=== PATIENT | female | born 1940 | race Caucasian/White ===

== ENCOUNTER 2016-12-13 09:43 | Inpatient (IN) | payer MEDICARE ==
[~2016-12-13] VITALS: Ht 167.6 cm; Wt 110.6 kg
[~2016-12-13 09:43] MED LIST: COU5 PO; HCTZ; ZES20T PO; [UNRECOGNIZED DRUG - CODE] PO
[2016-12-13] MEDS ORDERED: Polyethylene Glycol (PEG) 17 Gm Powder PO PRN (10:20)
[2016-12-13] MEDS ORDERED: Alum-Mag Hydrox-Simeth 30 mL Suspension PO PRN (10:20)
[2016-12-13 10:26] VITALS: PULSE 122
[2016-12-13 11:10] LABS: INR 1.27 ratio
[2016-12-13 11:18] LABS: Magnesium 1.9 mg/dL (1.6-2.6)
[2016-12-13] MEDS ORDERED: LOSA50TA37 PO (11:55)
[2016-12-13] MEDS ORDERED: METO25TA6 PO (12:06)
[2016-12-13] MEDS ORDERED: WARF7.5T4 PO (12:06)
[2016-12-13] MEDS ORDERED: WARF5TAB7 PO (12:06)
[2016-12-13] MEDS ORDERED: MELA10TA3 PO (12:06)
[2016-12-13] MEDS ORDERED: CHRO200C PO (12:06)
[2016-12-13] MEDS ORDERED: CALC-140 PO (12:06)
[2016-12-13 12:30] VITALS: BP 148/85; PULSE 133; RESP 20; O2SAT 95
[2016-12-13 16:08] VITALS: BP 152/77; PULSE 111; RESP 18; O2SAT 95
[2016-12-13 16:21] VITALS: PULSE 120
--- NOTE | 2016-12-13 17:19 | PCM.CONPHA ---
Subjective Date of Service: Dec 13, 2016 Requesting Provider: Shawn Espinal PA-C Reason for Pharmacy Consult: Anticoagulation Management Objective Vital Signs Date Time Temp Pulse Resp B/P Pulse Ox O2 Delivery O2 Flow Rate FiO2 12/13/16 16:21 120 12/13/16 16:08 111 18 152/77 95 Room Air 12/13/16 12:30 36.4 133 20 148/85 95 Room Air 12/13/16 10:26 122 Weight (Kilograms): 110.000 Height (Feet): 5 Height (Inches): 6.00 Test 12/13/16 10:45 12/13/16 13:00 Prothrombin Time 13.7sec (8.1-12.5) Prothromb Time International Ratio 1.27ratio Sodium Level 142mEq/L (134-144) Potassium Level 4.3mEq/L (3.5-5.2) Chloride Level 105mEq/L (97-108) Carbon Dioxide Level 26mmol/L (18-29) Blood Urea Nitrogen 15mg/dL (8-27) Creatinine 0.64mg/dL (0.57-1.00) Estimat Glomerular Filtration Rate 129mL/min (>59) Glucose Level 100mg/dL (60-99) Calcium Level 9.9mg/dL (8.5-10.1) Magnesium Level 1.9mg/dL (1.6-2.6) Total Bilirubin 0.4mg/dL (0.0-1.2) Aspartate Amino Transf (AST/SGOT) 17U/L (0-50) Alanine Aminotransferase (ALT/SGPT) 15U/L (0-32) Alkaline Phosphatase 55U/L (25-165) Total Protein 5.9g/dL (6.4-8.4) Albumin 3.7g/dL (3.4-5.0) Hold Garcia Top Tube Received (Received) Hold Urine Received (Received) Assessment/Plan Assessment/Plan INR goal: 2-3 Home dose: warfarin 7.5 mg daily Labs: INR (12/13/16): 1.27 INR is subtherapeutic. Give bolus dose of warfarin 10 mg today. Patient to be started on Lovenox 110 mg BID. INR labs ordered for tomorrow. Pharmacy to continue to monitor. Thank you, Emma Peter Pharmacist Emma Peter Dec 13, 2016 17:19
--- NOTE | 2016-12-13 18:07 | HP ---
[address] [address] HISTORY AND PHYSICAL PATIENT: CAMPBELL WASHINGTON : 1940 MR#: [id number] ADMIT: 12/13/2016 JOB ID: [id number] CHIEF COMPLAINT: Palpitations and dyspnea with minimal exertion and lightheadedness. BRIEF HISTORY: The patient is a pleasant 76-year-old woman known to have paroxysmal atrial fibrillation, who has been previously treated with flecainide and beta-arnie along with anticoagulation with warfarin. She has preserved biventricular function and a recent negative stress test, but she has been unsuccessfully managed with flecainide to prevent atrial fibrillation. When in arrhythmia she reports dyspnea with minimal exertion and gets lightheaded but has not had syncope. Some time ago, when she first was diagnosed with atrial fibrillation, she did have an episode of syncope. She and Dr. Oswaldo Shanks spoke about various management options for atrial fibrillation including rhythm control with antiarrhythmic medications, rate control with AV pollo blocking agents, and atrial fibrillation ablation procedure. They decided upon switching antiarrhythmic medications to sotalol and she is being admitted for that purpose now. PAST MEDICAL HISTORY: Atrial fibrillation has been diagnosed since November 2011. She also has hypertension and sick sinus syndrome. ALLERGIES: No known drug allergies. REVIEW OF SYSTEMS: Constitutional: Positive for weight gain. Cardiac: Positive for chest discomfort and palpitations. Eyes: No visual changes. Endocrine: No polydipsia. Psychiatric: No anxiety. Musculoskeletal: No muscular weakness. Cardiac: Negative for claudication or edema. GI: No dyspepsia. No diarrhea or constipation. No blood in the stool. Neuro: No dizziness. : No hematuria or urinary discomfort. Hematology: No easy bruising. Respiratory: No dyspnea except with minimal exertion when in atrial fibrillation. Skin: No rash. PHYSICAL EXAMINATION: Vital signs BP 148/85, pulse rapid and irregular in atrial fibrillation, rate 133 per minute. Pulse oximetry 95% on room air. Temperature 36.4 degrees Celsius. Weight is 110 kg. General: The patient is a well-nourished, well-developed, middle-aged white female, in no distress. She is well oriented to time, person, place, and situation. Eyes: Showed normal pupils and normal extraocular movements. Neck: Supple. No thyromegaly, no JVD. Carotid pulses are faint, but there are no carotid bruits. Chest: Breath sounds are full and clear in all menjivar. Cardiac: Rapid and irregularly irregular rhythm, with normal heart sounds. Abdomen: Soft, nontender. No organomegaly and bowel sounds are active. Extremities: No cyanosis, good color. Pulses are intact and she moves all four normally. Psychiatric: She is appropriate in conversation, mood, and affect, and knows why she is here. She is also well oriented to time, place, and person. RELEVANT LABORATORY DATA: On admission: PT 13.7, INR of 1.27. Blood chemistry shows potassium 4.3, creatinine 0.64, magnesium 1.9, along other values. Baseline 12-lead ECG shows atrial fibrillation with variable rates and an average rate of 118 per minute. The QT is 341 msec and QTc 478 msec. A 2nd EKG recorded two hours after the first dose of sotalol 80 mg shows average rate 113 BPM, QT 354 msec, and QTc 486 msec. ASSESSMENT: The patient with a history of paroxysmal atrial fibrillation presents in atrial fibrillation today. She is mildly aware of palpitations and presently not symptomatic with dyspnea, chest pain, lightheadedness, or near syncope. Her INR is subtherapeutic at 1.27. She reports the anticoagulation clinic had been checking her once per month and the previous INR was 2.2. PLAN: The patient presents in persistent atrial fibrillation of unknown duration. Also her INR is subtherapeutic at 1.27 and it has been approximately one month since the previous therapeutic INR. Therefore it is unknown how long she has been subtherapeutic. Our plan will be to hold sotalol both this evening and tomorrow morning and to schedule a MIGUEL tomorrow morning with Dr. William in the [facility]. Her warfarin dose will be increased this evening and she will be treated with Lovenox 110 mg b.i.d. beginning this evening to cover for anticoagulation until her warfarin dose is therapeutic. If the MIGUEL shows no presence of left atrial thrombus, then the sotalol dosing can be continued. If she does have thrombus, then we will stop the sotalol and leave her in atrial fibrillation while the warfarin dosing is adjusted to get a therapeutic INR.
--- NOTE | 2016-12-13 18:39 | NUR ---
Admit Pt. arrived to room 2009 PCC from home at ~1000. Pt. is here to be switched from flecainide to sotalol and have heart monitored through this event. Current hearth rhythm is AFIB and HR 133 per tele, Pt. is AOx3, LOOMIS, does not complain of any pain at this time, VS stable. Pt. is in room independent and with most of the day. Pt. is in room eating her dinner at this time watching TV while her left for jehovah's witness and stated he will return later tonight to give her company. IV placed by IV nurse on right wrist, patent.
[2016-12-13 19:46] VITALS: BP 135/90; PULSE 113; RESP 20; O2SAT 96
[2016-12-13 23:04] VITALS: BP 155/87; PULSE 88; RESP 20; O2SAT 94
[2016-12-13] MEDS: Sodium Chloride LOK Flush 10 mL Syringe IVFLUSH SCH (23:05)
[2016-12-14] VITALS (9 sets, daily range): BP systolic 115–146; BP diastolic 65–78; PULSE 63–130; RESP 14–20; O2SAT 94–96
[2016-12-14 03:36] LABS: Mean Corpuscular Hemoglobin 28.2 pg (27.0-35.0); Mean Corpuscular Volume 88.8 fL (81-100)
[2016-12-14 03:47] LABS: INR 1.43 ratio
--- NOTE | 2016-12-14 06:51 | NUR ---
Tele Pt tele Afib w/ rate mostly seen in 90s- up to 120s. Rate seen in 130s w/ activity nonsustained. Pt denies any pain/symptoms overnight. Pt given Warfarin and Lovenox last night per orders, INR 1.43 this morning.
[2016-12-14] MEDS ORDERED: 0.9% Sodium Chloride 1,000 ML IV SCH (09:00)
[2016-12-14] MEDS: Calcium Carbonate (Oyster Shell) 500 mg Tablet PO SCH ×2 (09:20→20:48)
[2016-12-14] MEDS: Sodium Chloride LOK Flush 10 mL Syringe IVFLUSH SCH ×3 (09:21→22:34)
--- NOTE | 2016-12-14 09:23 | NUR ---
Social Work: Initial Assessment D: Per EMR review, pt is a 76 year old female admitted for AFIB. Pt is [facility] Medicare with no LTC insurance or VA benefits. PCP is Sharda Renee MD. NOK is Sharan Mcdaniel, Spouse, . Advanced directives completed but not on file- AUT[employer] BUMPER STRAIGHTENER requested these from pt and spouse. Readmit score is low, 2/8. AUTO BUMPER STRAIGHTENER met with pt and spouse at bedside. Sw role explained. See initial assessment. Pt and spouse live in [place]. Pt is I at baseline, continues to drive and uses no DME. Pt has never had HH or skilled rehab. Pt and spouse deny any home needs or concerns. EMR reviewed and no sw needs identified at this time. Pt has been I during admission and is schedule for MIGUEL today. A: Pt who is I at base. P: Anticipate pt to discharge home today via POV (spouse); AUTO BUMPER STRAIGHTENER to continue to follow. SHALOM Rajput Addendum: 12/14/16 at 1014 by ALEX WELCH Amended: Links added.
[2016-12-14] MEDS ORDERED: fentaNYL-PF 50 mCg/mL 2 mL Inj ONE (09:27)
[2016-12-14] MEDS ORDERED: Flumazenil 0.1 mg/mL 5 mL Inj IV ONE (09:27)
--- NOTE | 2016-12-14 09:54 | NUR ---
Patient transferred from floor for scheduled transesophageal echocardiogram with Dr. William. Monitor shows atrial fibrillation with heart rate 117 to 125. She would like her current right wrist IV to be removed as it is irritating when she bends her wrist. iv inserted by Costa Dobson R.N. to right AC area.Pt is accompanied by her spouse.
--- NOTE | 2016-12-14 10:30 | NUR ---
PROCEDURE CANCELLED PATIENT CONVERTED SPONTANEOUSLY TO SINUS RHYTHM. DR DOSS AT BEDSIDE, ADDITIONAL METOPROLOL 12.5 MG P.O ORDERED BY HER AND HAS BEEN GIVEN. 12 LEAD EKG COMPLETED. REPORT TO Trung ABBOTT R.N
--- NOTE | 2016-12-14 12:45 | NUR ---
Tele When patient arrived back from MIGUEL pts heart rhythm changed from afib to SR at 10:45am. RN aware and RN stated that pt didnt receive the MIGUEL due to new rhythm identified and Sotalol was started.
--- NOTE | 2016-12-14 14:05 | PCM.PHAPRO ---
Progress Warfarin Dosing: Indication: AFib Home dose 7.5mg/d Admit dx: Sotalol start Recent dosing: Date 1-Dec 2-Dec 3-Dec 16-Dec 5-Dec 6-Dec 7-Dec 8-Dec 9-Dec 10-Dec INR 1.27 1.43 INR change 0.16 Warf Dose 10 7.5 p/ Resume home dose. Mathew Gunter Pharm D Dec 14, 2016 14:05
--- NOTE | 2016-12-14 14:09 | NUR ---
spiritual care: pt request pt reflected on condition and earlier surprise cardiac conversion. Pt and spouse considering hopes, goals including travel and family,protestant commitments. pt hopeful, relaxed and attributed her ekta in god to her sense of peace. 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
--- NOTE | 2016-12-14 17:44 | NUR ---
Tele/Ambulation No reports of chest pain/pressure/discomfort. Patient converted to sinus rhythm at approx 1000 -- MIGUEL cancelled, has remained SR throughout shift rate 60-70. Per cable television program director when ambulating in hallway today, patient went into junctional rhythm x1 with HR in low 100s, patient asymptomatic. All vital signs within normal limits, no reports of pain, tolerating PO intake well, 1100 sotalol dose administered per MD orders.
[2016-12-15] VITALS (9 sets, daily range): BP systolic 109–134; BP diastolic 59–73; PULSE 50–65; RESP 14–18; O2SAT 93–96
[2016-12-15 02:55] LABS: INR 1.77 ratio
--- NOTE | 2016-12-15 06:06 | NUR ---
Cardiac Pt remained in SR throughout shift, HR 50s-60s w/ PACs, occasionally down to high 40s, not sustained. Sotalol given per order last night, ECG 2 hrs post found in pt chart. Most recent QTc 489. Pt denied any pain, dizziness, or palpitations. Pt ambulated around unit prior to bed and denied any symptoms.
--- NOTE | 2016-12-15 09:40 | PROG NOTE ---
[address] [address] PROGRESS NOTE PATIENT: CAMPBELL WASHINGTON : 1940 MR#: [id number] ADMIT: 12/13/2016 JOB ID: [id number] DATE: 12/14/2016 CHIEF COMPLAINT: Rapid palpitations and exertional dyspnea. SUBJECTIVE: The patient is a pleasant 76-year-old woman who was admitted yesterday to start sotalol for treatment of atrial fibrillation. She received one dose of sotalol 80 mg yesterday morning and tolerated it well without any side effects. When her baseline lab work came back, her INR was only 1.27, and so the evening dose of sotalol was withheld. Since she was in atrial fibrillation with an unknown duration, it was also unknown how long her INR was subtherapeutic, we did not want to intentionally cause a conversion to sinus rhythm and increase her risk of stroke. Plans were made to do a transesophageal echo to rule out left atrial thrombus and determine whether to continue with starting sotalol. She was taken down to the [facility] about 10 o'clock on December 14, 2016 and just before the MIGUEL was performed, she converted to sinus rhythm. She was asymptomatic and she was returned to her PCC room. OBJECTIVE: The 12 lead ECG after conversion to sinus rhythm showed a rate of 59 BPM, QT 456 and QTc of 452 msec. Her INR on December 14, 2016 was 1.43. Her vital signs after return to sinus rhythm were BP 146/78, pulse 83, respirations 16, and oximetry showed 96% on room air. Other than her rate being normal and regular, her physical examination is unchanged from admission. ASSESSMENT: The patient spontaneously converted from atrial fibrillation to sinus rhythm 24 hours after a single dose of sotalol 80 mg. Most likely this was a spontaneous conversion unrelated to sotalol as she is known to have paroxysmal atrial fibrillation. She is tolerating sotalol well, her vital signs are stable and we will resume sotalol 80 mg b.i.d. PLAN: Continue sotalol and record her 12 lead ECG two hours after each dose. Also enoxaparin at 110 mg q.12 hours subcu was started the first evening of this admission for anticoagulation to cover her until the warfarin becomes therapeutic again. Pharmacy is adjusting the warfarin dosing. If her QT interval stays within 15% of the baseline measurement, then we will consider discharging her home after the fourth or fifth dose of sotalol.
[2016-12-15] MEDS: Sodium Chloride LOK Flush 10 mL Syringe IVFLUSH SCH ×2 (09:52→17:16)
[2016-12-15] MEDS: Calcium Carbonate (Oyster Shell) 500 mg Tablet PO SCH ×2 (09:52→21:53)
--- NOTE | 2016-12-15 14:58 | NUR ---
spiritual care: pt request conversational visit and prayer. pt waiting for physician, positive manner. hopeful tone.
--- NOTE | 2016-12-15 19:31 | NUR ---
Uneventful shift Patient alert and oriented x3, LOOMIS, reports full sensation, BP within normal limits, HR greater than 60 and remained in SR all shift. No pain.
--- NOTE | 2016-12-15 23:56 | NUR ---
CP Pt called at 2340 to state that she felt "a bruising" pain in her check when she was laying on her side. The pain went away with movement and hurt 1/10 on the pain scale. Pt stated she has felt this "a few times" since her admission to the hospital. Pt had an EKG done at 2200 that is comparable to the previous EKG done. Pt advised to call RN immediately if it happens again or had any other concerns.
[2016-12-16] MEDS: Sodium Chloride LOK Flush 10 mL Syringe IVFLUSH SCH ×2 (00:58→08:01)
[2016-12-16 04:23] VITALS: BP 147/60; PULSE 57; RESP 16; O2SAT 98
[2016-12-16 05:33] VITALS: PULSE 60
[2016-12-16 07:52] VITALS: BP 155/85; PULSE 59; RESP 18; O2SAT 95
[2016-12-16] MEDS: Calcium Carbonate (Oyster Shell) 500 mg Tablet PO SCH (08:02)
[2016-12-16 09:01] LABS: INR 2.22 ratio
--- NOTE | 2016-12-16 09:14 | DI95 ---
[address] [address] DAILY PROGRESS NOTE PATIENT: CAMPBELL WASHINGTON : 1940 MR#: [id number] ADMIT: 12/13/2016 JOB ID: [id number] DATE: 12/15/2016 CHIEF COMPLAINT: Mild shortness of breath when walking. SUBJECTIVE: The patient is a pleasant 76-year-old woman who was admitted on December 13, 2016 to start treatment with sotalol for atrial fibrillation. She was in atrial fibrillation the first day but converted the morning of the second day after receiving one dose of sotalol 80 mg 24 hours prior to the conversion. Administration of sotalol had been withheld because her INR was subtherapeutic and we were going to get a MIGUEL but she converted just prior to the procedure. Sotalol was resumed and she has been tolerating it without side effects except that she feels a little bit short of breath when walking. Otherwise she feels well and has no side effects from the medication. OBJECTIVE: Twelve lead ECGs have been recorded two hours after each dose of sotalol. The ECG recorded a few minutes after her conversion to sinus rhythm showed a rate of 59 BPM with a QTC of 452 msec. The ECG two hours after the fourth dose of sotalol yesterday morning showed a QTc of 489 msec which is within the 15% increase that is acceptable. Metoprolol had been reduced to 12.5 mg to allow an increase in sinus rhythm but she is remaining in the 50s. Her INR on the morning of December 15, 2016 was 1.77 and vital signs were BP 128/71, pulse rate 54, oximetry 96% on room air. Her physical examination remains unchanged from admission. ASSESSMENT AND PLAN: The patient is being started on sotalol for treatment of atrial fibrillation in that her QT interval is prolonging within the 15% increase acceptable with sotalol. She remains in sinus rhythm and is tolerating the medication well. She will receive the fifth dose of sotalol around 8 p.m. this evening, and ECG will be recorded two hours later. We will anticipate discharge from the hospital tomorrow morning. [facility]
[2016-12-16 10:12] VITALS: PULSE 62
--- NOTE | 2016-12-16 10:44 | PCM.DIMED ---
Discharge Instructions Date of Service Dec 16, 2016 Dates of Hospitalization Dec 13, 2016 at 09:48 Discharge Diagnosis Discharge Diagnosis Paroxysmal Atrial Fibrillation Hypertension Diet Heart Healthy Activity No restrictions Call your provider Other (Fainting or near fainting; rapid pulse or heart palpitations) Patient Instructions Mid-level Provider (F9): Shawn Espinal PA-C Follow-up with Mid-level in: 1 week (12-22-16 at 09:45 (arrival time for 10:00 appt.)) Shawn Espinal PA-C Dec 16, 2016 10:44
[2016-12-16] MEDS ORDERED: METO25TA6 PO (10:49)
[2016-12-16] MEDS ORDERED: BET80 PO (10:49)
--- NOTE | 2016-12-16 11:14 | PCM.PHAPRO ---
Progress Date of Service: Dec 16, 2016 Warfarin dosing A/ INR is therapeutic today at 2.22 but was a sharp increase from yesterday ( 1.77). This is perhaps reflecting the "loading" dose of 10mg that was given on . P/ Reduce daily dose to 4mg today to avoid overshooting the INR and continue to follow. Guy Montalvo Dec 16, 2016 11:14
--- NOTE | 2016-12-16 11:14 | DIS ---
[address] [address] DISCHARGE SUMMARY PATIENT: CAMPBELL WASHINGTON : 1940 MR#: [id number] ADMIT: 12/13/2016 JOB ID: [id number] DIS: 12/16/2016 REASON FOR ADMISSION: To start sotalol for treatment of paroxysmal atrial fibrillation. CHIEF COMPLAINT: Rapid palpitations and exertional dyspnea. BRIEF HISTORY: The patient is a pleasant 76-year-old woman with a history of paroxysmal atrial fibrillation that had been treated for five years fairly successfully with flecainide and a beta-arnie along with warfarin for anticoagulation. In recent months though, she was having episodes of atrial fibrillation every week and sometimes several times weekly while still taking flecainide. Before considering an atrial fibrillation ablation procedure, a change in antiarrhythmic medication to sotalol was advised. COURSE IN HOSPITAL: The patient was admitted to the [facility], and after baseline ECG and lab data were obtained, she was administered sotalol at 80 mg. Her initial ECG showed atrial fibrillation with an average rate of 118 BPM. Her lab work came back showing the INR was just 1.27 and so sotalol was withheld until a MIGUEL could be arranged the next day to determine whether there was any left atrial thrombus. Just prior to the performance of the MIGUEL, she converted to sinus rhythm so there was no need to pursue the MIGUEL. Sotalol was then continued at 80 mg b.i.d. and her QT interval progressively prolonged until after the final two doses of sotalol, the corrected QT was 500 msec. This was within 15% of baseline but still mildly prolonged. She felt well other than continued to have exertional shortness of breath, as she had prior to hospitalization. She also had some occurrences of atypical chest discomfort which was self-resolving. After discussion of the patient's course with Dr. Smith, we decided to decrease the sotalol dose to 40 mg b.i.d. and see her back in one week at the office. Should she have recurrence of atrial fibrillation, the dose of sotalol could be increased to 80 mg b.i.d. but not more than that. DISPOSITION: The patient was discharged home in good condition with a follow up appointment at the [facility] office in one week for an ECG and review of medication effectiveness. She may continue a heart healthy diet and has no activity restrictions. The only change in her pre-admission medications will be to reduce metoprolol to 12.5 mg b.i.d. DISCHARGE MEDICATIONS: 1. Sotalol 40 mg b.i.d. 2. Calcium carbonate vitamin D 3 1 b.i.d. 3. Chromium picolinate 200 mcg daily. 4. Losartan 50 mg q.h.s. 5. Melatonin 10 mg q.h.s. p.r.n. insomnia. 6. Warfarin 7.5 mg each evening or as directed by her anticoagulation clinic. 7. Metoprolol tartrate 12.5 mg b.i.d. FINAL DIAGNOSES: 1. Paroxysmal atrial fibrillation. 2. Remote history of syncope. 3. Hypertension.
--- NOTE | 2016-12-16 11:23 | NUR ---
Discharge pt ordered for discharge home with family. pt agreeable. discharge instructions and meds reviewed with patient. pt offered wheelchair escort, declined. Pt ambulate out with all belongings and steady gait at about 1125.
== END 2016-12-16 11:27 | disposition home or self-care (01) | DRG 310 ==
LOC: PCC 09:48
PROVIDERS: ADMIT Internal Medicine Cardiovascular Disease; ATTEND Internal Medicine Cardiovascular Disease
DX: I48.0 Paroxysmal atrial fibrillation (principal); Z79.01 Long term (current) use of anticoagulants; Z79.899 Other long term (current) drug therapy; I10 Essential (primary) hypertension; R79.1 Abnormal coagulation profile

== ENCOUNTER 2017-05-08 14:18 | Inpatient (IN) | payer MEDICARE ==
[~2017-05-08] VITALS: Ht 167.6 cm; Wt 108.9 kg
[2017-05-08] VITALS (8 sets, daily range): BP systolic 126–153; BP diastolic 69–91; PULSE 99–120; RESP 17–23; O2SAT 95–97
[~2017-05-08 14:18] MED LIST changes: +BET80 PO; +CALC-140 PO; +CHRO200C PO; -COU5 PO; -HCTZ; +LOSA50TA37 PO; +MELA10TA3 PO; +METO25TA6 PO; +WARF7.5T4 PO; -ZES20T PO; -[UNRECOGNIZED DRUG - CODE] PO
[2017-05-08 15:06] LABS: EOSINOPHILS % (AUTO) 3.1 % (0-5); MONOCYTES % (AUTO) 10.9 % (4-12); Mean Corpuscular Hemoglobin 28.5 pg (27.0-35.0); Mean Corpuscular Volume 87.4 fL (81-100); NEUTROPHILS % (AUTO) 58.6 % (40-74); Platelet Count 234 bil/L (150-400)
--- NOTE | 2017-05-08 15:08 | ED.REPORT ---
HPI-Chest Pain 40 and Over Date of Service May 08, 2017 ED Provider: Gregory Rodriguez MD A 77 year old female with a history of hypertension, syncope and paroxysmal atrial fibrillation anticoagulated on warfarin presents to the ED with chest pain that began approx. 3 days ago. Patient was sent by her screw cutter, Dr. Vyas, for further evaluation and admission for possible pacemaker placement. Her chest pain is exacerbated by movement and she denies any recent injury. The pain comes intermittently. She has been experiencing shortness of breath which has been a chronic issue for the past few months. Patient was previously admitted in 12/2016 for her A-fib and was placed on Sotalol. She denies any recent fever, chills or cough. Nursing Notes Stated Complaint: AFIB, SHORTNESS OF BREATH, CHEST PAIN Chief Complaint: Chest Pain Nursing Notes Reviewed: Yes Allergies: Coded Allergies: No Known Allergies (Unverified , 11/29/11) Scheduled Calcium Carbonate/Vitamin D3 (Calcium 500 + Vit D 400 Tablet) 1 Each Tablet 1 EACH PO BIDWM Chromium Picolinate (Chromium Picolinate) 200 Mcg Capsule 200 MCG PO QAM Hydrochlorothiazide (Hydrochlorothiazide) 25 Mg Tablet 25 MG PO QAM Losartan Potassium (Losartan Potassium) 50 Mg Tablet 50 MG PO HS Melatonin (Melatonin) 10 Mg Tablet 10 MG PO HS Metoprolol Tartrate (Metoprolol Tartrate) 25 Mg Tablet 12.5 MG PO BID Sotalol (Betapace) 80 Mg Tablet 40 MG PO BID Warfarin Sodium (Warfarin Sodium) 7.5 Mg Tablet 7.5 MG PO HS Scheduled PRN Acetaminophen/Codeine 300-30mg (Acetaminophen/Codeine 300-30mg) 1 Each Tablet 1- 2 TABLET PO Q4H PRN PRN Pain Acyclovir (Acyclovir) 400 Mg Tablet 400 MG PO BID PRN PRN COLD SORES Ascorbic Acid (Vitamin C) 250 Mg Tab.chew 500 MG PO DAILY PRN PRN COMING DOWN W / COLD General Time Seen by MD: 15:06 Chief Complaint Chest pain Hx Obtained From: Patient Arrived By: Walk-in Sudden in Onset?: No Onset Occurred: 3 days ago Symptom Duration: Since onset Location: : Chest left: Chest right Quality: Painful Radiation: : Does not radiate Migration/Movement: Reports: None Severity: Current: Moderate Severity: Maximum: Moderate Associated with: Reports: Shortness of Breath, Denies: Cough, non-productive, Cough, productive, Cough, with hemoptysis, Fever Pertinent Negative: Pt denies other symptoms Recent Healthcare: No recent doctor visit, No recent hospitalization Risk Factors )( CAD Risk Stratification Hypertension Risk factors reviewed )( TAD Risk Stratification Hypertension Risk factors reviewed )( PE Risk Stratification Risk factors reviewed Past Medical History Past Medical History Atrial fibrillation Hypertension Sick Sinus Syndrome Syncope Past Surgical History None reported. Smoking History Unknown if Ever Smoker Social History Other Social History: Good social support, Local resident Ambulatory Status Independent Review of Systems Constitutional: Denies: Chills, Fever Respiratory: Reports: Shortness of breath, Denies: Non-productive cough Cardiovascular: Reports: Chest pain Complete sys rev & neg: except as marked. Physical Exam Initial Vital Signs Vital Signs (First) Date Time Temp Pulse Resp B/P Pulse Ox O2 Delivery O2 Flow Rate FiO2 05/08/17 14:29 36.5 113 20 139/80 97 Room Air Initial VS: Reviewed Head / Eyes: Atraumatic, Normocephalic, PERRL Neck: Supple, Non-tender, Full range of motion Extremities: Vascular intact, Neuro intact, No swelling, No tenderness Skin: Warm, Dry, No cyanosis Neurologic: Alert, Oriented, Nonfocal Psychiatric: Mood/affect normal, Behavior normal, Normal thought content General/Constitutional: Awake, Alert, No acute distress, Well appearing, Well developed Respiratory / Chest: Atraumatic, Breath sounds NL, Breath sounds = bilat, No respiratory distress Chest Wall / Ribs: Positive: Chest tender upper L (Reproducible left chest tenderness ) Cardiovascular: Regular rhythm, Heart sounds NL, No murmurs Heart Rate / Rhythm: Positive: Irregular rhythm, Tachycardia (Irregular rate) CARDIO: Trace lower extremity edema Abdomen: Atraumatic, Soft, Non-tender Interpretation & Diagnostics Lab Results Interpretation Result Diagram: 05/08/17 1448 05/08/17 1448 Test 05/08/17 14:48 White Blood Count 7.3th/mm3 (3.8-10.1) Red Blood Count 4.84mil/mm3 (3.90-5.20) Hemoglobin 13.8g/dL (12.0-15.6) Hematocrit 42.3% (35.0-46.0) Mean Corpuscular Volume 87.4fL (81-100) Mean Corpuscular Hemoglobin 28.5pg (27.0-35.0) Mean Corpuscular Hemoglobin Concent 32.6% (32.0-37.0) Red Cell Distribution Width 14.6% (12.3-15.4) Platelet Count 234bil/L (150-400) Neutrophils (%) (Auto) 58.6% (40-74) Lymphocytes (%) (Auto) 26.4% (14-46) Monocytes (%) (Auto) 10.9% (4-12) Eosinophils (%) (Auto) 3.1% (0-5) Basophils (%) (Auto) 1.0% (0-3) Prothrombin Time 78.5sec (8.1-12.5) Prothromb Time International Ratio 7.05ratio Sodium Level 141mEq/L (134-144) Potassium Level 3.7mEq/L (3.5-5.2) Chloride Level 101mEq/L (97-108) Carbon Dioxide Level 24mmol/L (18-29) Blood Urea Nitrogen 19mg/dL (8-27) Creatinine 0.68mg/dL (0.57-1.00) Estimat Glomerular Filtration Rate 120mL/min (>59) Glucose Level 87mg/dL (60-99) Calcium Level 10.1mg/dL (8.5-10.1) Magnesium Level 2.0mg/dL (1.6-2.6) Total Bilirubin 0.4mg/dL (0.0-1.2) Aspartate Amino Transf (AST/SGOT) 20U/L (0-50) Alanine Aminotransferase (ALT/SGPT) 19U/L (0-32) Alkaline Phosphatase 72U/L (25-165) Pro-B-Type Natriuretic Peptide 2489pg/mL (0-738) Total Protein 7.3g/dL (6.4-8.4) Albumin 4.3g/dL (3.4-5.0) Hold Garcia Top Tube Received (Received) ECG Interpretation ECG Interpretation: IMPRERSSION A-fib Rate [address] changes Time: 15:19 Interpreted by: ED physician X-Ray Chest Interpretation Chest Xray Interpretation: IMPRESSION: No acute pulmonary process. Dictated by: Jody Polanco M.D. on 05/08/2017 at 15:14 Interpretation / Wet Read by: Interpret - Radiologist Re-Eval/Medical Decision Med Decision/Clinical Course 77-year-old female history of paroxysmal atrial fibrillation, tachybradycardia syndrome, hypertension sent in by Dr. Smith for chest pain and admission for pacemaker placement. Reports chest pain 3 days. No acute EKG changes. Troponins are negative. Her INR is markedly elevated at 7. Vitamin K was given for elevated INR. Dr. Smith requested metoprolol 25 mg by mouth 4 times a day. She was given 1 dose of 5 mg IV metoprolol. H of fibrillation RVR improved from 115 to low 100s. Admitted with atrial fibrillation with RVR, tachybradycardia syndrom., Elevated INR. Time of Eval: 16:06 Re-Evaluation/Progress Note: Pt is informed of the plan to admit for pacemaker placement. All questions about her diagnosis are addressed. She understands and agrees with the treatment plan. Time of Eval: 16:54 Re-Evaluation/Progress Note: Pt is tachycardic. Family is informed of the pt's lab results and diagnosis. Code status is discussed in the presence of family. Patient would like to be full code. Consultation #1: Referral / Consult Name: Evie Smith MD Consulted With: Cardiology Call Returned at: 16:06 Lug Breaker And Wire Puller: Will see patient, Agrees with eval, Requested pharmaceutical laboratory technician Note: Would like the pt on 45 mg of Metoprolol QID Consultation #2: Referral / Consult Name: Guy Garner MD Consulted With: Hospitalist Call Returned at: 16:54 Lug Breaker And Wire Puller: Will see patient, Agrees with eval, Agrees with plan, Accepts admit Counseled Regarding: Diagnosis, Lab results, Need for admission Discharge & Departure Primary Impression: Atrial fibrillation with RVR Additional Impressions: Chest pain Chest pain type: unspecified Qualified Code: R07.9 - Chest pain, unspecified Tachy-zhanna syndrome Disposition: ADMITTED TO HOSPITAL Discharge Condition All VS Reviewed: Yes Condition: Stable Referrals: Sharda Ballard MD (PCP) Crit Care Except Billable Proc Time Spent: 30-74 minutes (30 minutes) Services Performed: Patient management by me, Time spent at bedside, Reviewing test results, Reviewing imaging, Discussing patient care, Documentation in record, Time with fam/surrogate Scribe Attestation Portions of this note were transcribed by Haley Torrez. I, Dr. Rodriguez personally performed the history, physical exam and medical decision-making; I reviewed and confirmed the accuracy of the information in the transcribed note. Signed by: Carola Milan, 05/08/17 0217. copies to: Sharda Ballard MD, Ben M MD May 08, 2017 15:08 HALEY TORREZ May 08, 2017 15:15
--- NOTE | 2017-05-08 15:16 | DRSVH ---
PROCEDURE: X-RAY CHEST ONE VIEW, PORTABLE ([id number]) INDICATIONS: CHEST PAIN TECHNIQUE: One view of the chest was acquired. COMPARISON: [facility], CR, XR CHEST 2VW, 03/27/2017, 15:37. FINDINGS: Surgical changes and devices: None. Lungs and pleura: No pleural effusions or pneumothorax. Lungs are clear. Mediastinum: Mediastinal contours appear normal. Heart size is normal. Bones and chest wall: No suspicious bony lesions. Overlying soft tissues appear unremarkable. IMPRESSION: No acute pulmonary process. Dictated by: Jody Polanco M.D. on 05/08/2017 at 15:14 Approved by: Jody Polanco M.D. on 05/08/2017 at 15:14
[2017-05-08 15:36] LABS: INR 7.05 ratio
[2017-05-08 15:40] LABS: TROPONIN T 0.01 ug/L (0.0-0.011)
[2017-05-08] MEDS ORDERED: MeTOProlol 1 mg/mL 5 mL Inj IVPUSH PRN (15:40)
[2017-05-08] MEDS ORDERED: ACYC400T2 PO (15:53)
[2017-05-08] MEDS ORDERED: Phytonadione (Adult) 10 mg/1 mL Inj PO ONE ×2 (16:00→16:15)
[2017-05-08] MEDS ORDERED: MELA10TA2 PO (16:11)
[2017-05-08] MEDS ORDERED: HYDR25TA4 PO (16:14)
[2017-05-08] MEDS ORDERED: CALC-51 PO (16:14)
[2017-05-08] MEDS ORDERED: ACET1TAB42 PO (16:20)
[2017-05-08] MEDS ORDERED: ASCO250T7 PO (16:21)
[2017-05-08] MEDS ORDERED: Alum-Mag Hydrox-Simeth 30 mL Suspension PO PRN ×2 (16:55→17:05)
[2017-05-08] MEDS ORDERED: Ondansetron 2 mg/mL 2 mL Inj IVPUSH PRN ×2 (16:55→17:05)
[2017-05-08] MEDS ORDERED: Polyethylene Glycol (PEG) 17 Gm Powder PO PRN (17:05)
--- NOTE | 2017-05-08 17:35 | PCM.HPMED ---
Subjective Date of Service May 08, 2017 Primary Provider: Admitting Physician: Primary Care Physician: Sharda Ballard MD Attending Physician: Chief Complaint: Patient direct admit from Dr. Smith with Cardiology for permanent pacemaker placement for unstable Afib with RVR. History of Present Illness: Ms. Ashia Coats is a pleasant 77 year old lady with a PMHx significant for HTN, Paroxysmal AFib, CABAN seen in the ED under the direction of Dr. Smith with Cardiology. In clinic today patient reports increased CABAN, chest pain and generalized weakness. EKG showed Afib with RVR at which point Dr. Smith recommended admission to [facility] for permanent pacemaker placement. In the ED patient was also super-therapeutic with an INR of 7. She reports 6 months history of increased general weakness and malaise, increased dry cough, increased lower extremity swelling, weight gain, several episodes of chest pain with diaphoresis, and increased use of the recliner due to shortness of breath when lying flat. She is a "Snow bird" and goes to [place] in the winter. She was there from mid Dec to early March this year. In the ED her vitals are as follows: T-36.5, HR-113, RR-20, BP-139/80, 97% on RA. Labs: CBC/CMP - within normal limits. BNP 2489, Troponins 0.[address] Smith spoke with Dr. Shanks. They recommended Metoprolol tartrate 25 mg QID to keep HR below 100, and Vit K 5mg. They are considering FFP in the am if INR remains high. Patient received 5mg Vit K and Metoprolol 25 mg. Review of Systems: A comprehensive review of systems was conducted with the patient and found to be negative except as above in the History of Present Illness. Allergies Coded Allergies: No Known Allergies (Unverified , 11/29/11) Home Medications Chromium Picolinate (Chromium Picolinate) 200 Mcg Capsule 200 MCG PO QAM Hydrochlorothiazide (Hydrochlorothiazide) 25 Mg Tablet 25 MG PO QAM Losartan Potassium (Losartan Potassium) 50 Mg Tablet 50 MG PO HS Melatonin (Melatonin) 10 Mg Tablet 10 MG PO HS Metoprolol Tartrate (Metoprolol Tartrate) 25 Mg Tablet 12.5 MG PO BID Sotalol (Betapace) 80 Mg Tablet 40 MG PO BID Warfarin Sodium (Warfarin Sodium) 7.5 Mg Tablet 7.5 MG PO HS Scheduled PRN Acetaminophen/Codeine 300-30mg (Acetaminophen/Codeine 300-30mg) 1 Each Tablet 1- 2 TABLET PO Q4H PRN PRN Pain Acyclovir (Acyclovir) 400 Mg Tablet 400 MG PO BID PRN PRN COLD SORES Ascorbic Acid (Vitamin C) 250 Mg Tab.chew 500 MG PO DAILY PRN PRN COMING DOWN W / COLD PMH Atrial fibrillation Hypertension Sick Sinus Syndrome Syncope Surgical History Tonsillectomy Appendectomy Family History Mother passed from lung cancer. Father passed from prostate cancer. Social History Hx Alcohol Use: No Hx Substance Use: No Hx Tobacco Use: No Smoking Status: Unknown if Ever Smoker Exam Vital Signs Vital Sign - Last Date Time Temp Pulse Resp B/P Pulse Ox O2 Delivery O2 Flow Rate FiO2 05/08/17 14:29 36.5 113 20 139/80 97 Room Air Exam General: No acute distress, well-developed, moderately obese lady, well- nourished, appropriately interactive HEENT: Normocephalic, atraumatic. External ears without defect. Pupils equal, round, and reactive to light and accommodation. Anicteric sclerae, moist conjunctivae, and no lid lag. Oropharynx free of erythema and cobble stoning with moist mucosa. Neck: Supple with full range of motion. No jugular venous distension. No bruits. No lymphadenopathy or thyromegaly. Cardiovascular: Irregular rate and rhythm with no murmurs, rubs, or gallops appreciated Pulmonary: Clear to auscultation bilaterally with no crackles, wheezes, or rhonchi. Normal respiratory effort with no use of accessory muscles. Abdomen: Bowel tones present. Soft, Obese, nontender, nondistended. No hepatosplenomegaly or masses appreciated. Extremities: No clubbing, cyanosis, Mild to moderate edema to the knees bilaterally, no lymphadenopathy appreciated. Skin: Normal temperature, turgor, and texture; no rash, ulcers, or subcutaneous nodules appreciated. Neurological: Cranial nerves grossly intact. Normal muscle strength, tone, and bulk. Reflexes, coordination, and sensory function within normal limits. No known gait impairment. Psychiatric: Normal mood and affect. Alert and oriented to person, place, and time. Lab and Diagnostics Result Diagram: 05/08/17 1448 05/08/17 1448 Assessment & Plan Ms. Ashia Coats is a 77 year old lady here for unstable atrial fibrillation with RVR, admitted for placement of PPM and super-therapeutic INR. Atrial Fibrillation with RVR, present on admission, Active. - HR - 94 currently. - Direct Admit by Dr. Smith with Cardiology. - Dr. Nina to see patient and consider Dual-chamber permanent pacemaker. - Cardiology considering Flecainide 150 mg BID and aggressive BB titration ( pending tropes) following implant placement. - Metoprolol tartrate 25mg QID to keep HR below 100. - Cardiology involved, recommendations appreciated. - NPO after midnight. Super-therapeutic INR. present on admission. Active. Holding Warfarin, INR on admit 7.05. - 5mg Vit K given in ED, will recheck INR - preparing for PPM. Chest pain, present on admission. Improving. - EKG with no ST elevation. - Troponins 0.010, repeat Q8H pending. Obesity, present on admission. Active. - BMI 39.2. - Heart Healthy diet. Chronic Hypertension. - Continue home losartan 50 mg and Hctz 25 daily in the AM, hold if hypotensive. Continue home acyclovir. Acetaminophen for mild pain when necessary. Bowel regimen Senna and MiraLAX scheduled and PRN. Zofran when necessary for nausea and vomiting. SubQ heparin held for now. SCDs in place. High-risk medications: Disposition: Likely here for > 2 midnights. Dependent upon cardiac procedure. Will be discharged to home when medically stable. Pain Evaluation: Adequate Pain Control Resuscitation Status: CPR: Attempt Resuscitation Attending Statement The patient was seen and examined together with Dr. Farooq on 05/08/2017 and I agree with the history, exam and plan as outlined in the note above. . copies to: Sharda Ballard MD, COREY P DO May 08, 2017 17:13 Guy Garner MD May 09, 2017 18:38
[2017-05-08] MEDS ORDERED: Ascorbic Acid 500 mg Tablet PO PRN (18:55)
[2017-05-08] MEDS ORDERED: Acyclovir 400 mg Tablet PO PRN (18:55)
[2017-05-08] MEDS ORDERED: CHROMIUM PICOLINATE PO SCH (18:55)
--- NOTE | 2017-05-08 19:12 | NUR ---
Admission note Report received from ED rn. Patient arrived to room 2004 at about 1800. Patient oriented to call light. Policies and procedures explained. Patient verbalized understanding. Patient alert and oriented x3. Pt SL at this time. Tele verified at bedside, Tele Afib 90s. vitals charted. Report given to oncoming RN.
[2017-05-08 23:42] LABS: APPEARANCE,URINE CLEAR (CLEAR,HAZY); COLOR,URINE YELLOW (YELLOW)
[2017-05-08 23:43] LABS: OCCULT BLOOD,URINE TRACE (NEGATIVE); UROBILINOGEN,URINE NORMAL (NORMAL)
[2017-05-09] VITALS (16 sets, daily range): BP systolic 113–151; BP diastolic 68–109; PULSE 86–132; RESP 12–22; O2SAT 92–98
[2017-05-09 04:42] LABS: INR 2.22 ratio
--- NOTE | 2017-05-09 05:09 | NUR ---
Telemetry Pt reports 2/10 intermittent dull ache on left chest. She mentions that its the same discomfort she has been having at home. Pt reports it lasts less than a min or so. She reports also she noted the discomfort when she moves her left arm sometimes. Md made aware. No further pain at this time. Will continue to monitor. Telemetry Afib HR 90s-low 120s (non-sustained). HR up to 130s-140s with activity. Pt denies any discomfort when moving/getting. She denies any palpitations or dizziness. Pt aware of NPO status after midnight for possible pacer placement.
[2017-05-09] MEDS: Calcium Carbonate (Oyster Shell) 500 mg Tablet PO SCH ×2 (08:00→20:33)
--- NOTE | 2017-05-09 11:40 | NUR ---
Case Management: MICHAELA delivered and explained to pt. and spouse. Signed original placed in chart. Copy left at bedside. Addendum: 05/09/17 at 1141 by PEBBLES CLEMENTE CM Pebbles Clemente RN
--- NOTE | 2017-05-09 14:20 | NUR ---
pt to procedure Patient for pacer placement at about 1420. Procedure for pacer placement explained to patient by Dr Shanks. Patient denies any allergies. Ongoing care.
[2017-05-09] MEDS ORDERED: Bupivacaine-MPF 0.5% 30 mL Inj ONE (14:39)
[2017-05-09] MEDS ORDERED: Heparin 10,000 Unit/1,000 mL NS Premix IV ONE (14:39)
[2017-05-09] MEDS ORDERED: fentaNYL-PF 50 mCg/mL 2 mL Inj ONE ×2 (14:40→17:05)
[2017-05-09] MEDS ORDERED: 0.9% Sodium Chloride 50 ML ONE (14:46)
--- NOTE | 2017-05-09 15:02 | NUR ---
Social Work Note: Attempted Initial Assessment/Screen Note Data& Assessment: EMR Reviewed. Ashia Coats is a 77 year old female admitted on 05/08/2017 for AFIB with RVR and chest pain. Pt has [facility] and sees Sharda Ballard MD for primary care. Pt lives in [place] with her spouse. Per MD, pt undergoing pacemaker placement today. SW attempted to meet with pt at bedside to complete initial assessment and discuss discharge planning, but pt had already left for pacer placement. SW to follow up with pt when appropriate post pacer placement to complete initial assessment and confirm discharge plan. SW to continue to follow. Plan: Anticipated discharge home when medically ready. SW to follow up with pt when appropriate post pacer placement to complete initial assessment and confirm discharge plan. SW to continue to follow. SHALOM Lees
[2017-05-09] MEDS: 0.9% Sodium Chloride 1,000 ML IV SCH (15:55)
[2017-05-09] MEDS ORDERED: HYDROcodone-APAP 5-325 mg Tablet PO PRN (15:55)
--- NOTE | 2017-05-09 16:40 | PROG NOTE ---
[address] [address] PROGRESS NOTE PATIENT: CAMPBELL WASHINGTON : 1940 MR#: [id number] ADMIT: 05/08/2017 JOB ID: [id number] DATE: 05/09/2017 IDENTIFICATION AND HISTORY OF PRESENT ILLNESS: This patient is a pleasant 77-year-old woman who I met in the outpatient arena. She has a structurally normal heart with symptomatic paroxysmal atrial fibrillation and recent negative stress testing. She was seen in clinic yesterday by Dr. Smith and was sent to the emergency department as she was in rapid atrial fibrillation with dyspnea and chest discomfort. Her INR was also supratherapeutic at over 7. She was admitted to the hospital and her sotalol was stopped. She was started on [id number] beta blockade and her rate was decently controlled. In the past, she has had symptomatic bradycardia, went in sinus rhythm on modest dose flecainide. Today her INR is in therapeutic range in the mid 2-range. She remains in atrial fibrillation with rates in the 90s and low 100s. She denies any chest pain, pressure, discomfort. She has remained hemodynamically stable. IMPRESSION AND RECOMMENDATION: This patient is a pleasant, 77-year-old woman with a structurally normal heart, recent negative stress testing and symptomatic atrial fibrillation refractory to therapy with sotalol punctuated by symptomatic sinus bradycardia precluding up-titration of antiarrhythmic therapy. I recommended a dual-chamber pacemaker implantation with subsequent reinitiation of flecainide at higher dose along with beta blockade. She will likely need a cardioversion. Her INR should be maintained between 2 and 3, and her warfarin can be safely restarted now since she is back in the therapeutic range. We should hold off on starting sotalol and would like to start flecainide in the morning after she has cleared sotalol for 48 hours. I have changed her metoprolol to succinate to 50 mg twice daily starting this evening. I discussed the risks and benefits of pacemaker implantation with her at length including her family members in a discussion, and ultimately she wishes to proceed. PLAN: 1. Dual-chamber pacemaker implantation. 2. Change metoprolol to succinate formulation 50 mg twice daily. 3. Resume warfarin with a goal INR of 2-3. 4. Start flecainide 150 mg twice daily tomorrow morning. 5. Pacemaker Clinic in one week. 6. Follow up with Dr. Smith in one week if rate controlled to discuss cardioversion. Thank you for much for allowing me to participate in the care of this patient. Please call with any questions.
--- NOTE | 2017-05-09 16:59 | DRSVH ---
PROCEDURE: X-RAY CHEST ONE VIEW, PORTABLE ([id number]) INDICATIONS: For new leads placed TECHNIQUE: One view of the chest was acquired. COMPARISON: [facility], CR, XR CHEST 1VW (PORTABLE), 05/08/2017, 14:53. FINDINGS: Surgical changes and devices: There is a cardiac pacemaker with leads in expected position. Lungs and pleura: No pleural effusions or pneumothorax. Lungs are clear. Mediastinum: Mediastinal contours appear normal. Heart size is mildly increased. Bones and chest wall: No suspicious bony lesions. Overlying soft tissues appear unremarkable. IMPRESSION: Cardiac pacemaker leads in expected position. Dictated by: Jos Saleem M.D. on 05/09/2017 at 16:57 Approved by: Jos Saleem M.D. on 05/09/2017 at 16:58
--- NOTE | 2017-05-09 17:05 | NUR ---
Received post dual chamber pacemaker for recovery in [place]. Pt has pain 4/10 at pacer site. Pain medication given. Noted Left forearm IV reddened and tender - Probable cause Vancomycin - Dr Shanks informed. Orders for Benadryl 25mg PO if needed - Pt currently declines medication. Orders for 2nd and last dose of Vancomycin to infuse at 1/2 rate with continued site assessment. Warm pack placed on IV site.
[2017-05-09] MEDS ORDERED: Vancomycin 1,000 mg Inj ONE (17:16)
[2017-05-09] MEDS ORDERED: 0.9% Sodium Chloride 250 ML ONE (17:16)
--- NOTE | 2017-05-09 17:26 | OP ---
[address] [address] OPERATIVE REPORT PATIENT: CAMPBELL WASHINGTON : 1940 MR#: [id number] ADMIT: 05/08/2017 JOB ID: [id number] DATE OF SURGERY: 05/09/2017 SURGEON: Digital Circuit Designer: Oswaldo Shanks MD ASSISTANTS: Shawn Espinal PA-C and Amanda Tirado. PREOPERATIVE DIAGNOSIS(ES): Sick sinus syndrome. POSTOPERATIVE DIAGNOSIS(ES): Sick sinus syndrome. PROCEDURES PERFORMED: 1. Dual-chamber pacemaker implantation. 2. Fluoroscopy. IMPLANTED DEVICE: 1. [employer] pulse generator model GE2083, serial #[id number]. 2. RA lead [employer] 2088TC, 52 cm, serial #[id number]. 3. RV lead [employer] 2088TC, 58 cm, serial # [id number]. ANESTHESIA: Bolus dosing of Versed and fentanyl were utilized for an appropriate level of sedation. INDICATION: This patient is a pleasant, 77-year-old woman with a structurally normal heart who has sick sinus syndrome punctuated by symptomatic paroxysmal atrial fibrillation. After discussion of risks and benefits of pacemaker implantation, she opted to proceed. PROCEDURE: Following informed consent, the patient was taken to the EP laboratory in the fasting, nonsedated state, where she was prepped in the usual sterile fashion. The left infraclavicular region was infiltrated with 40 cc of a 50/50 mixture of bupivacaine and lidocaine. Once adequate anesthesia was achieved, a 3 cm transverse incision was performed 2 cm below the clavicle. Dissection was carried to the pectoralis fascia. A pocket was then fashioned using combination of electrocautery and blunt dissection. Once adequate hemostasis had been achieved, access to the left axillary vein was done over the first rib with a micropuncture needle twice to deploy two 0.035, 3 mm J guidewires. Over the first of these, a 6-Jordanian tear-away sheath was advanced. Once the guidewire was removed, an active fixation outflow tract and ultimately the RV apex. The lead was affixed in position using screw. It was connected to the external analyzer and demonstrated appropriately sensed R waves, feeds capture threshold was checked 10 V and there was no evidence of diaphragmatic stimulation. Attention was now paid to placement of the right atrial lead. Over the other previously deployed J guidewire, another 6-Jordanian tear-away sheath was advanced. Once the guidewire was removed, an active fixation lead was advanced in the right atrial appendage. It was affixed in position using associated screw. The lead was connected to the external analyzer and demonstrated appropriately sensed fibrillation waves, impedance and no diaphragmatic stimulation at 10 V. Once the both leads were confirmed on multiple fluoroscopic views, the leads were anchored to the prepectoralis fascia using sutures. the pocket was copiously with antibiotic solution. The lead was connected to a generator. The generator system pocket was affixed to the floor of the pocket using 1-0 Ti-Cron suture. The incision was closed with running layers of absorbable suture. The wound was dressed with skin adhesive and a small dressing. At the end of the procedure, the needle, sponge, and instrument counts were all correct. COMPLICATIONS: None. ESTIMATED BLOOD LOSS: Negligible. DEVICE MEASURED DATA: 1. Right atrial lead 2.9-4.0 mV, fibrillation waves, 510 ohms. 2. RV lead 0.5 V at 0.4 msec, 11.3 mV, 600 ohms. FINAL PROGRAM PARAMETERS: DDDR 60-130 beats per minute with mode switched to DDI at 70 beats per minute. IMPRESSION: Successful dual-chamber pacemaker implantation. PLAN: 1. Stat portable chest x-ray chest x-ray in morning. 2. IV vancomycin through tomorrow. 3. Doxycycline 100 mg p.o. daily x7 days. 4. Wound check in one week. ATTENDING STATEMENT: Oswaldo Shanks MD, electrophysiology attending, was present for and supervised/performed all aspects of this procedure.
[2017-05-09] MEDS ORDERED: diphenhydrAMINE 25 mg Capsule PO PRN (17:45)
--- NOTE | 2017-05-09 18:29 | PCM.PNMED ---
Subjective Date of Service May 09, 2017 Subjective Overnight the patient had small spurts of 90-120 HR and up to 130-140 with activity. She reports feeling better than yesterday and denies any chest pain, headache, dizziness, SOB, nausea or vomiting. She is ambulating, voiding, and eliminating without issue. She is wondering if she is getting a pacemaker today. Exam Vital Signs Vital Sign - Last Date Time Temp Pulse Resp B/P Pulse Ox O2 Delivery O2 Flow Rate FiO2 05/09/17 16:59 98 12 130/85 98 Room Air 05/09/17 12:33 36.7 Intake and Output 05/08/17 05/08/17 05/09/17 Cumulative From/Thru 15:00 23:00 07:00 05/08/17 14:29 - 05/09/17 05:48 Intake Total 775 ml 775 ml Output Total 1300 ml 1300 ml Balance -525 ml -525 ml Intake Oral 775 ml 775 ml Output Urine Total 1300 ml 1300 ml Exam General: Pleasant, elderly woman sitting upright in bed talking with her family in NAD HEENT: She is wearing glasses. PEERLA, EOMI. Her membranes are pink and moist. Neck: Supple with full range of motion. No JCD, bruits. No lymphadenopathy/ thyromegaly. CV: Irregular rate and rhythm without murmurs/rubs/gallops Pulm: CTA bilaterally with no crackles, wheezes, or rhonchi. Normal respiratory effort. Abd: Bowel tones present. Soft, obese, nontender, nondistended. No organomegaly. Extremities: Mild/moderate edema to the knees bilaterally, no clubbing/cyanosis Skin: Warm, dry. No chronic venous stasis changes or rashes noted. Neurological: A&Ox3. CN 2-12 intact. Normal muscle strength and sensation in all extremities. No gait impairment. Psychiatric: Normal mood and affect. IVs and Medications Medications Reviewed: Medications were reviewed in detail Lab and Diagnostics Result Diagram: 05/09/17 0405 05/08/17 3708 Assessment & Plan Ms. Ashia Coats is a 77 year old lady here for unstable atrial fibrillation with RVR, admitted for placement of PPM and super-therapeutic INR. Atrial Fibrillation with RVR, present on admission, Active. - HR between 90-120 today - Patient is scheduled for dual chamber pacemaker this afternoon with Dr. Shanks. - Keep patient NPO until procedure -Cardiology following, appreciate their input Super-therapeutic INR. present on admission. Resolved. -Patients INR fell from 7.05 on admission to 2.22 today. -Will resume warfarin after procedure -Recheck INR tomorrow Chest pain, present on admission. Improving. - EKG with no ST elevation. - Troponins 0.010, repeat Q8H pending. Obesity, present on admission. Stable. - BMI 39.2. - Heart Healthy diet. Chronic Hypertension. - Continue home losartan 50 mg and Hctz 25 daily in the AM, hold if hypotensive. PRN Acetaminophen for mild pain when necessary. Bowel regimen Senna and MiraLAX scheduled and PRN. Zofran when necessary for nausea and vomiting. Disposition: Patient will be discharged home likely in 1-2 days, depending on response to pacemaker and medications. Pain Evaluation: Adequate Pain Control Resuscitation Status: CPR: Attempt Resuscitation Attending Statement The patient was seen and examined together with Dr. Chawla on 05/09/2017 and I agree with the history, exam and plan as outlined in the note above. . copies to: Sharda Ballard MD, Jeffery S DO May 09, 2017 18:29 Guy Garner MD May 11, 2017 05:44 Adryan Chawla DO May 09, 2017 18:29
--- NOTE | 2017-05-09 18:37 | NUR ---
Pt transferred to PCC room 2004. Pt's Lt upper chest dressing CDI with no bleeding/hematoma/swelling noted. Pt's VSS. Report and pt handoff given to Shanti HYMAN.
--- NOTE | 2017-05-09 19:00 | NUR ---
Post pacer pt back to room 2004 at 1830, Report received from Trent HYMAN. Patient alert and oriented, c/o 3/10 pain asking for Tylenol. Baseline vitals taken and charted. Tele Afib 110s, occasionally Vpaced. Tylenol 650mg given for incision pain. Report given to oncoming RN.
[2017-05-09] MEDS: MeTOProlol XL 50 mg ER24 Tablet PO SCH (20:32)
[2017-05-09] MEDS ORDERED: Codeine-APAP 30-300 mg Tablet PO PRN (21:05)
[2017-05-10] VITALS (7 sets, daily range): BP systolic 114–186; BP diastolic 66–106; PULSE 64–115; RESP 16–20; O2SAT 95–98
[2017-05-10] MEDS: 0.9% Sodium Chloride 1,000 ML IV SCH (01:55)
[2017-05-10] MEDS ORDERED: Vancomycin Inj 1,500 MG in 0.9% Sodium Chloride 500 ML IV ONE (02:30)
[2017-05-10] MEDS ORDERED: 0.9% Sodium Chloride 250 ML ONE (02:56)
[2017-05-10 03:02] LABS: BASOPHILS % (AUTO) 0.5 % (0-3); EOSINOPHILS % (AUTO) 2.8 % (0-5); MONOCYTES % (AUTO) 13.3 % (4-12); Mean Corpuscular Hemoglobin 28.5 pg (27.0-35.0); NEUTROPHILS % (AUTO) 57.2 % (40-74); Platelet Count 201 bil/L (150-400)
[2017-05-10] MEDS ORDERED: Vancomycin Inj 1,000 MG in IV Premix 1 EACH IV ONE (03:55)
--- NOTE | 2017-05-10 05:22 | NUR ---
Pain/Dressing Pt reports shoulder/incisional pain. She reports Codeine effective for pain. Telemetry Afib HR in 80s to low 100s. Ocassionally vpaced beats. No c/o chest pain. Dressing CDI. No hematoma or oozing noted.
[2017-05-10] MEDS: Calcium Carbonate (Oyster Shell) 500 mg Tablet PO SCH (08:31)
[2017-05-10] MEDS: MeTOProlol XL 50 mg ER24 Tablet PO SCH (08:31)
--- NOTE | 2017-05-10 10:13 | NUR ---
Social Work: Initial Assessment/Discharge D: Per EMR review, pt is a 77 year old female admitted for afib with RVR, Chest Pain. Pt is [employer] with no LTC insurance or VA benefits. PCP is Sharda Ballard MD. NOK is Sharan Coats, spouse, . Readmit score is high, 3. Pt discussed in am rounds. Pt is medically stable for discharge at this time. MD anticipates pt to require no sw needs. GLASS BLOWER HELPER met with pt and spouse at bedside. Sw role explained and contact info provided. Pt lives in a 2 story home in [place] with her spouse. Pt has been I with ADLs, uses no DME and continues to drive. Pt has never had HH or skilled rehab. Pt and family express no concerns about discharge. No needs identified at this time. A: Pt who is I at baseline. P: Anticipate pt to discharge home via POV and no sw needs. SHALOM Rajput Addendum: 05/10/17 at 1038 by ALEX WELCH Amended: Links added.
[2017-05-10] MEDS ORDERED: FLEC150T PO (10:37)
[2017-05-10] MEDS ORDERED: METO-272 PO (10:37)
--- NOTE | 2017-05-10 10:44 | PCM.DIMED ---
Adryan Chawla DO 05/10/17 1044: Discharge Instructions Date of Service May 10, 2017 Dates of Hospitalization May 08, 2017 at 17:29 Discharge Diagnosis Discharge Diagnosis Atrial Fibrillation with RVR Super-therapeutic INR Chest pain Obesity Chronic Hypertension. Medication Instructions Additional med instructions Stop taking your home metoprolol tartrate and use the metoprolol succinate 50mg twice daily instead. Resume your warfarin dose at home and follow your INR at the clinic regularly. Take your flecanide 150mg twice daily and follow up with Dr. Smith in a week. Take doxycycline 100mg every day for a week to prevent infection. The wound will be checked in 1 week at your follow up. Diet Discharge Diet: Heart Healthy Activity Discharge Activity: No restrictions Call your provider Call your provider for: Fever or Chills, Shortness of breath, Bleeding, Chest pain, Weakness (unilateral) Patient Instructions Patient Instructions Stop taking your home metoprolol tartrate and use the metoprolol succinate 50mg twice daily instead. Resume your warfarin dose at home and follow your INR at the clinic regularly. Take your flecanide 150mg twice daily and follow up with Dr. Smith in a week. Take doxycycline 100mg every day for a week to prevent infection. The wound will be checked in 1 week. Follow-up Provider: Evie Smith MD Follow-up with PCP in: 1 week (flecanide changes) Provider: Shawn Espinal PA-C Follow-up in: 1 week (wound check, dev check ) Guy Garner MD 05/11/17 0546: Discharge Instructions Attending's Statement The patient was seen and examined together with Dr. Chawla on 05/10/2017 and I agree with the history, exam and plan as outlined in the note above. . Adryan Chawla DO May 10, 2017 10:44 Guy Garner MD May 11, 2017 05:46
[2017-05-10] MEDS ORDERED: DOXY100C2 PO (10:46)
[2017-05-10] MEDS ORDERED: Warfarin 2.5 MG, Warfarin 5 MG PO ONE ×2 (12:15)
--- NOTE | 2017-05-10 12:30 | NUR ---
spiritual care: routine brief visit, family in room. pt shared her medical report, bright affect and hopeful tone as she anticipates more medical stabilty and feeling more energetic following pacemaker placement. Pt active in [facility] [facility].
--- NOTE | 2017-05-10 17:15 | DRSVH ---
PROCEDURE: X-RAY CHEST, TWO VIEWS ([id number]) INDICATIONS: For new lead placement TECHNIQUE: 2 views of the chest were acquired. COMPARISON: [facility], CR, XR CHEST 1VW (PORTABLE), 05/09/2017, 16:28. [facility], CR, XR CHEST 2VW, 03/27/2017, 15:37. FINDINGS: Surgical changes and devices: Stable position left cardiac pacer. Lungs and pleura: No pleural effusions or pneumothorax. Lungs are clear. Mediastinum: Mediastinal contours are normal. Heart size is no enlarged rmal. Bones and chest wall: No suspicious bony abnormalities. Soft tissues appear unremarkable. IMPRESSION: Stable chest post pacer placement. Dictated by: Charlie Montes RRA Interpreted: Jody Polanco MD on 05/10/2017 at 10:42 Approved by: Jody Polanco M.D. on 05/10/2017 at 17:13
--- NOTE | 2017-05-10 17:48 | PCM.DC.MED ---
Discharge Summary Date of Service May 10, 2017 Dates of Hospitalization Date of Hospital Admission May 08, 2017 at 17:29 Date of Discharge: May 10, 2017 Providers: Admitting Physician: Guy Garner MD Primary Care Physician: Sharda Ballard MD Attending Physician: Guy Garner MD Diagnosis at Time of Discharge Diagnosis at Time of Discharge Atrial Fibrillation with RVR Super-therapeutic INR Chest pain Obesity Chronic Hypertension. Procedures XRay, CTs & MRIs Chest XR 05/08 IMPRESSION: No acute pulmonary process. Dictated by: Jody Polanco M.D. on 05/08/2017 at 15:14 Approved by: Jody Polanco M.D. on 05/08/2017 at 15:14 Chest XR 05/09 IMPRESSION: Cardiac pacemaker leads in expected position. Dictated by: Jos Saleem M.D. on 05/09/2017 at 16:57 Approved by: Jos Saleem M.D. on 05/09/2017 at 16:58 Chest XR 05/10 IMPRESSION: Stable chest post pacer placement. Dictated by: Charlie Montes RRA Interpreted: Jody Polanco MD on 05/10/2017 at 10: 42 Approved by: Jody Polanco M.D. on 05/10/2017 at 17:13 Invasive Procedures Dual Chamber Implantation 05/09 IMPRESSION: Successful dual-chamber pacemaker implantation. PLAN: 1. Chest x-ray in morning. 2. IV vancomycin through tomorrow. 3. Doxycycline 100 mg p.o. daily x7 days. 4. Wound check in one week. Oswaldo Shanks MD 05/09/17 1601 <Electronically signed by Oswaldo Shanks MD> 05/09/17 1836 Brief History Ms. Ashia Coats is a pleasant 77 year old lady with a PMHx significant for HTN, Paroxysmal AFib, CABAN seen in the ED under the direction of Dr. Smith with Cardiology. In clinic today patient reports increased CABAN, chest pain and generalized weakness. EKG showed Afib with RVR at which point Dr. Smith recommended admission to [facility] for permanent pacemaker placement. In the ED patient was also super-therapeutic with an INR of 7. She reports 6 months history of increased general weakness and malaise, increased dry cough, increased lower extremity swelling, weight gain, several episodes of chest pain with diaphoresis, and increased use of the recliner due to shortness of breath when lying flat. She is a "Snow bird" and goes to [place] in the winter. She was there from mid Dec to early March this year. Dr. Smith spoke with Dr. Shanks in regards to pacemaker insertion. They started her on metoprolol tartrate 25mg QID to control her HR and 5mg VitK for her super-therapeutic INR of 7. Her INR fell to 2.[address] Shanks proceeded with pacemaker implantation with initiation of flecanide 150 PO BID. Her warfarwin was restarted prior to discharge. She will be following up for a wound/device check in 1 week and on doxycycline for 7 days to prevent infection. She will also see Dr. Smith. Hospital Course Ms. Ashia Coats is a 77 year old lady here for unstable atrial fibrillation with RVR, admitted for placement of PPM and super-therapeutic INR. Atrial Fibrillation with RVR, present on admission, Active. - HR between 90-120 today - Patient received dual chamber pacemaker yesterday afternoon. - Start flecanide 150mg PO daily - Doxycycline 100mg PO daily Super-therapeutic INR. present on admission. Resolved. -Patients INR fell from 7.05 on admission to 2.22 today. -Resumed warfarin prior to discharge -Will follow up in warfarin clinic Chest pain, present on admission. resolved. - EKG with no ST elevation changes - troponins negative x3. Obesity, present on admission. Stable. - BMI 39.2. -Discussed nutritional resources within community Chronic Hypertension, stable - Resume home losartan 50 mg and Hctz 25 daily - Metoprolol .succinate 50mg BID per Dr. Shanks Disposition: Patient was discharged in stable and improved condition. She will see cardiology in 1 week for a wound check and flecanide evaluation. She was agreeable to the plan, expressed understanding of under what symptoms she should return to the hospital. Exam Vital Signs (Last) Date Time Temp Pulse Resp B/P Pulse Ox O2 Delivery O2 Flow Rate FiO2 05/10/17 08:30 36.4 89 20 114/66 95 Room Air Exam General: Pleasant, elderly woman sitting upright in bed with a left arm sling talking with her family in NAD HEENT: She is wearing glasses. PEERLA, EOMI. Her membranes are pink and moist. Neck: Supple with full range of motion. No JCD, bruits. No lymphadenopathy/ thyromegaly. CV: Irregular rate and rhythm without murmurs/rubs/gallops Pulm: CTA bilaterally with no crackles, wheezes, or rhonchi. Normal respiratory effort. Abd: Bowel tones present. Soft, obese, nontender, nondistended. No organomegaly. Extremities: Mild/moderate edema to the knees bilaterally, no clubbing/cyanosis Skin: Warm, dry. No chronic venous stasis changes or rashes noted. There is pacemaker pocket incision along her left upper chest wall; it is neither erythematous or oozing. Neurological: A&Ox3. CN 2-12 intact. Normal muscle strength and sensation in all extremities. No gait impairment. Psychiatric: Normal mood and affect. Test 05/08/17 14:48 05/08/17 23:00 05/09/17 04:05 05/10/17 02:35 Magnesium Level 2.0mg/dL (1.6-2.6) Pro-B-Type Natriuretic Peptide 2489pg/mL (0-738) Hold Garcia Top Tube Received (Received) Urine Color Yellow (YELLOW) Urine Appearance Clear (CLEAR,HAZY) Urine pH 8.0 (5.0-8.0) Urine Specific [place]ondo 1.015 (1.003-1.035) Urine Protein Negativemg/dL (NEG,TRACE) Urine Glucose (UA) Negativemg/dL (NEGATIVE) Urine Ketones Negativemg/dL (NEGATIVE) Urine Occult Blood Trace (NEGATIVE) Urine Nitrite Negative (NEGATIVE) Urine Bilirubin Negative (NEGATIVE) Urine Urobilinogen Normalmg/dL (NORMAL) Urine Leukocyte Esterase Negative (NEGATIVE) Urine RBC 0-2/hpf (0-2) Urine WBC 0-5/hpf (0-5) Urine Epithelial Cells None/hpf (NONE-MOD) Urine Crystals None seen (NONE SEEN) Urine Bacteria None/hpf (NONE-FEW) Urine Hyaline Casts None/lpf (NONE) Urine Granular Casts None seen (NONE SEEN) Urine Waxy Casts None seen (NONE SEEN) Urine Red Blood Cell Casts None seen (NONE SEEN) Urine White Blood Cell Casts None seen (NONE SEEN) Urine Mucus None seen (None Seen) Urine Trichomonas None seen (NONE SEEN) Urine Yeast None (NONE SEEN) Urinalysis Comment None Urine Culture Reflexed Not indicated Prothrombin Time 24.1sec (8.1-12.5) Prothromb Time International Ratio 2.22ratio Troponin T 0.010ug/L (0.0-0.011) White Blood Count 6.1th/mm3 (3.8-10.1) Red Blood Count 4.28mil/mm3 (3.90-5.20) Hemoglobin 12.2g/dL (12.0-15.6) Hematocrit 38.1% (35.0-46.0) Mean Corpuscular Volume 89.0fL (81-100) Mean Corpuscular Hemoglobin 28.5pg (27.0-35.0) Mean Corpuscular Hemoglobin Concent 32.0% (32.0-37.0) Red Cell Distribution Width 14.3% (12.3-15.4) Platelet Count 201bil/L (150-400) Neutrophils (%) (Auto) 57.2% (40-74) Lymphocytes (%) (Auto) 26.0% (14-46) Monocytes (%) (Auto) 13.3% (4-12) Eosinophils (%) (Auto) 2.8% (0-5) Basophils (%) (Auto) 0.5% (0-3) Sodium Level 141mEq/L (134-144) Potassium Level 3.8mEq/L (3.5-5.2) Chloride Level 104mEq/L (97-108) Carbon Dioxide Level 26mmol/L (18-29) Blood Urea Nitrogen 17mg/dL (8-27) Creatinine 0.59mg/dL (0.57-1.00) Estimat Glomerular Filtration Rate 141mL/min (>59) Glucose Level 105mg/dL (60-99) Calcium Level 9.7mg/dL (8.5-10.1) Total Bilirubin 0.5mg/dL (0.0-1.2) Aspartate Amino Transf (AST/SGOT) 13U/L (0-50) Alanine Aminotransferase (ALT/SGPT) 12U/L (0-32) Alkaline Phosphatase 54U/L (25-165) Total Protein 5.4g/dL (6.4-8.4) Albumin 3.5g/dL (3.4-5.0) Discharge Medications Discharge Medications Calcium Carbonate/Vitamin D3 (Calcium 500 + Vit D 400 Tablet) 1 Each Tablet 1 EACH PO BIDWM (Reported) Chromium Picolinate (Chromium Picolinate) 200 Mcg Capsule 200 MCG PO QAM ( Reported) Doxycycline Hyclate (Doxycycline Hyclate) 100 Mg Capsule 100 MG PO DAILY Prescribed by: PARESH LUI DO Flecainide Acetate (Flecainide Acetate) 150 Mg Tablet 150 MG PO BID Prescribed by: PARESH LUI DO Hydrochlorothiazide (Hydrochlorothiazide) 25 Mg Tablet 25 MG PO QAM (Reported) Losartan Potassium (Losartan Potassium) 50 Mg Tablet 50 MG PO HS (Reported) Melatonin (Melatonin) 10 Mg Tablet 10 MG PO HS (Reported) Metoprolol Succinate ER (Metoprolol Succinate ER) 50 Mg Tab.er.24h 50 MG PO BID Prescribed by: PARESH LUI DO Warfarin Sodium (Warfarin Sodium) 7.5 Mg Tablet 7.5 MG PO HS (Reported) As needed Acetaminophen/Codeine 300-30mg (Acetaminophen/Codeine 300-30mg) 1 Each Tablet 1- 2 TABLET PO Q4H PRN PRN Pain (Reported) Acyclovir (Acyclovir) 400 Mg Tablet 400 MG PO BID PRN PRN COLD SORES (Reported) Ascorbic Acid (Vitamin C) 250 Mg Tab.chew 500 MG PO DAILY PRN PRN COMING DOWN W / COLD (Reported) Additional med instructions Stop taking your home metoprolol tartrate and use the metoprolol succinate 50mg twice daily instead. Resume your warfarin dose at home and follow your INR at the clinic regularly. Take your flecanide 150mg twice daily and follow up with Dr. Smith in a week. Take doxycycline 100mg every day for a week to prevent infection. The wound will be checked in 1 week at your follow up. Followup Plan Discharge Diet: Heart Healthy Discharge Activity: No restrictions Patient Instructions Stop taking your home metoprolol tartrate and use the metoprolol succinate 50mg twice daily instead. Resume your warfarin dose at home and follow your INR at the clinic regularly. Take your flecanide 150mg twice daily and follow up with Dr. Smith in a week. Take doxycycline 100mg every day for a week to prevent infection. The wound will be checked in 1 week. Follow-up Provider: Evie Smith MD Follow-up with PCP in: 1 week (flecanide changes) Provider: Shawn Espinal PA-C Follow-up in: 1 week (wound check, dev check ) Time spent Greater than 30 minutes was spent in preparation of discharge with greater than 50% of that time dedicated to patient counseling and coordination of care. . Attending Statement The patient was seen and examined together with Dr. Chawla on 05/10/2017 and I agree with the history, exam and plan as outlined in the note above. . copies to: Sharda Ballard MD; Evie Smith MD, Jeffery S DO May 10, 2017 17:03 Guy Garner MD May 11, 2017 05:47
== END 2017-05-10 12:15 | disposition home or self-care (01) | DRG 244 ==
LOC: SED 14:18 → OBSVTOIN 17:29 → PCC 17:29
PROVIDERS: ADMIT Internal Medicine; ATTEND Internal Medicine
PROC: 0JH606Z Insertion of Pacemaker, Dual Chamber into Chest Subcutaneous Tissue and Fascia, Open Approach (ICD-10-PCS; principal; 2017-05-09)
PROC: 02H63JZ Insertion of Pacemaker Lead into Right Atrium, Percutaneous Approach (ICD-10-PCS; 2017-05-09)
PROC: 02HK3JZ Insertion of Pacemaker Lead into Right Ventricle, Percutaneous Approach (ICD-10-PCS; 2017-05-09)
DX: I49.5 Sick sinus syndrome (principal); I48.0 Paroxysmal atrial fibrillation; E66.9 Obesity, unspecified; I10 Essential (primary) hypertension; Z79.01 Long term (current) use of anticoagulants; Z68.39 Body mass index [BMI] 39.0-39.9, adult

== ENCOUNTER 2017-05-18 00:06 | Day surgery (SDC) | payer MEDICARE ==
[~2017-05-18 00:06] MED LIST changes: +ACET1TAB42 PO; +ACYC400T2 PO; +ASCO250T7 PO; -BET80 PO; -CALC-140 PO; +CALC-51 PO; +DOXY100C2 PO; +FLEC150T PO; +HYDR25TA4 PO; +MELA10TA2 PO; -MELA10TA3 PO; +METO-272 PO; -METO25TA6 PO
[2017-05-18] MEDS ORDERED: Methohexital 10 mg/mL 50 mL Inj IV ONE (07:10)
[2017-05-18] MEDS ORDERED: 0.9% Sodium Chloride 1,000 ML IV SCH (07:10)
[2017-05-18 07:15] VITALS: BP 144/69; PULSE 60; RESP 15; O2SAT 95
--- NOTE | 2017-05-18 07:49 | NUR ---
Procedure cancelled. Pt. arrived about 0700. VSS. Denies pain. Tele Apaced and regular. INR 3.9. 12 lead EKG obtained and sent to Dr. Smith. She states SR and pt. can go home and already has F/U appointment with Shawn Espinal. Pt. requests to see Dr. Smith before leaving and Dr. Smith states she will be in shortly.
--- NOTE | 2017-05-18 09:06 | NUR ---
Pt. left Pt. left ambulatory with family and all belongings in no distress at [address] Smith.
== END 2017-05-18 23:59 | disposition home or self-care (01) ==
LOC: SOUO 00:06
PROVIDERS: ATTEND Internal Medicine
DX: I48.0 Paroxysmal atrial fibrillation (principal); Z53.8 Procedure and treatment not carried out for other reasons; Z79.01 Long term (current) use of anticoagulants; Z95.0 Presence of cardiac pacemaker